=== PATIENT | male | born 1945 | race Caucasian/White ===

== ENCOUNTER 2018-02-20 20:17 | Outpatient (REF) | payer MEDICARE, BC, SELFPAY ==
[2018-02-20 21:34] LABS: Anion Gap 7.4 mmol/L (3-11); BUN 18 mg/dL (7-18); CO2 28.6 mmol/L (21.0-32.0); CREATININE 0.98 mg/dL (0.70-1.30); Calcium 9.2 mg/dL (8.5-10.1); Chloride 104 mmol/L (98-107); Glucose 97 mg/dL (70-100); Potassium 4.1 mmol/L (3.5-5.1); Sodium 140 mmol/L (136-145)
[2018-02-20 22:22] LABS: Hemoglobin A1C 5.8 % (4.5-6.2)
== END 2018-02-20 20:37 ==
LOC: NCHCN 20:17
PROVIDERS: PCP Internal Medicine; Referring Provider Family Medicine; Visit Provider Family Medicine
DX: I10 Essential (primary) hypertension (principal); E78.5 Hyperlipidemia, unspecified; R73.02 Impaired glucose tolerance (oral); E66.9 Obesity, unspecified
CPT/HCPCS: 80048; 83036

== ENCOUNTER 2019-09-29 11:32 | Outpatient (REF) | payer MEDICARE, BC, SELFPAY ==
[2019-09-29 20:53] LABS: BUN 15 mg/dL (7-18); CREATININE 1.09 mg/dL (0.70-1.30); Calcium 9.5 mg/dL (8.5-10.1); Calculated LDL 176 mg/dL (<100); Chloride 104 mmol/L (98-107); Cholesterol 256 mg/dL (<200); Glucose 93 mg/dL (74-106); HDL Cholesterol 49 mg/dL (40-60); Potassium 4.8 mmol/L (3.5-5.1); Sodium 141 mmol/L (136-145); Triglyceride 157 mg/dL (<150)
[2019-09-29 20:58] LABS: Hemoglobin A1C 5.8 % (3.8-5.6)
== END 2019-09-29 11:52 ==
LOC: NCHCN 11:32
PROVIDERS: PCP Internal Medicine; Visit Provider Nurse Practitioner Family
DX: I10 Essential (primary) hypertension (principal); R73.03 Prediabetes; Z83.3 Family history of diabetes mellitus
CPT/HCPCS: 80048; 80061; 83036

== ENCOUNTER 2021-11-26 16:44 | Outpatient (REF) | payer MEDICARE, BC, SELFPAY ==
[2021-11-26 14:22] LABS: Hemoglobin A1C 5.9 % (<5.7)
[2021-11-26 14:29] LABS: ALT 28 U/L (16-63); BUN 20 mg/dL (7-18); CREATININE 0.9 mg/dL (0.70-1.30); Calcium 8.9 mg/dL (8.5-10.1); Calculated LDL 67 mg/dL (<100); Chloride 103 mmol/L (98-107); Cholesterol 147 mg/dL (<200); Glucose 99 mg/dL (74-106); HDL Cholesterol 56 mg/dL (40-60); Potassium 4.2 mmol/L (3.5-5.1); Sodium 138 mmol/L (136-145); Triglyceride 121 mg/dL (<150)
== END 2021-11-26 16:45 | disposition home or self-care (01) ==
LOC: NCHCN 16:44
PROVIDERS: PCP Internal Medicine; Visit Provider Family Medicine
DX: E78.5 Hyperlipidemia, unspecified (principal); R73.03 Prediabetes; I10 Essential (primary) hypertension; Z86.79 Personal history of other diseases of the circulatory system
CPT/HCPCS: 80048; 80061; 83036; 84460

== ENCOUNTER 2023-11-28 13:47 | Outpatient (REF) | payer MEDICARE, BC, SELFPAY ==
--- NOTE | 2023-11-28 09:30 | SKI_PTH ---
PATIENT: Samy Padgett LOC: [facility] U#:[id number] AGE/SX: 78/M ROOM: RE11/28/[address]: Tamara Lamar : 1945 BED: DIS: 11/28/2023 SPEC #: [id number] RECD: 11/28/23 16:24 STATUS: SINDY REWilda #: [id number] ENOCH: 11/28/23 09:[address]: Tamara Lamar DEPT: Surgical Specimen RECD BY: Carlee [place] ENTERED: 11/28/23 16:25 SP TYPE: SUZANNE NOVA DR: Eliot Schmidt Tissues: 1 - SKIN BIOPSY(SHAVE/PUNCH) Procedures: SKIN LEVEL 4 Comments: [id number]
== END 2023-11-28 13:48 | disposition home or self-care (01) ==
LOC: NCHCN 13:47
PROVIDERS: PCP Internal Medicine; Visit Provider Family Medicine
DX: L57.0 Actinic keratosis (principal)
CPT/HCPCS: 88305